=== PATIENT | male | born 1985 | race Caucasian/White ===

== ENCOUNTER → 2019-02-08 | Outpatient (CLI) | payer BC ==
[2019-02-08 07:44] LABS: POTASSIUM 4.4 mmol/L (3.5-5.1)
[2019-02-08 07:45] LABS: ALBUMIN 4.3 g/dL (3.5-5.0)
[2019-02-08 07:46] LABS: CALCIUM 9.4 mg/dL (8.3-10.5)
[2019-02-08 07:47] LABS: TOTAL PROTEIN 7.2 g/dL (6.4-8.3)
[2019-02-08 07:49] LABS: TOTAL BILIRUBIN 0.5 mg/dL (0.2-1.2)
== END ==
LOC: LAB 02-04 15:30
PROVIDERS: Family Medicine
DX: Z00.00 Encounter for general adult medical examination without abnormal findings (principal); Z13.1 Encounter for screening for diabetes mellitus; Z13.6 Encounter for screening for cardiovascular disorders; L65.9 Nonscarring hair loss, unspecified; L80 Vitiligo